=== PATIENT | male | born 1950 | race Caucasian/White ===

== ENCOUNTER 2022-04-14 18:06 | Emergency (ER) | payer MEDICARE ==
[2022-04-14 18:40] LABS: #Basophils 0.1 thou/uL (0.0-0.2); #Eosinphils 0.2 thou/uL (0.0-0.7); #Lymphocytes 1.3 thou/uL (1.20-3.40); #Monocytes 0.8 thou/uL (0.11-0.59); #Neutrophils 4.8 thou/uL (1.40-6.50); %Eosinophils 2.4 % (0.0-10.0); %Lymphocytes 18.7 % (21.0-51.0); %Monocytes 10.7 % (0.0-10.0); %Neutrophils 67.2 % (42.0-75.0); Hemoglobin 14.7 g/dL (14.0-18.0); Mean Corpuscular Hemoglobin 34.5 pg (27.0-31.0); Mean Platelet Volume 7.7 fL (7.4-10.4); Platelet Count 285 thou/uL (130-400); RBC Distribution Width 12.3 % (11.5-14.5); Red Blood Cell (RBC) Count 4.26 mill/uL (4.70-6.10); White Blood Cell (WBC) Count 7.1 thou/uL (4.8-10.8)
[2022-04-14 19:02] LABS: ALT (SGPT) 32 U/L (8-55); AST (SGOT) 32 U/L (5-34); Albumin 4.6 g/dL (3.4-4.8); Alkaline Phosphatase 68 U/L (40-110); Anion Gap 15 mmol/L (10-20); BUN (Urea Nitrogen) 17 mg/dL (8.4-25.7); Calc. Creatinine Clearance 0 mL/min (70-130); Carbon Dioxide 24 mmol/L (23-31); Chloride 102 mmol/L (98-107); Estimated GFR 76; Globulin 3.6 g/dL (2.4-3.5); Glucose 111 mg/dL (80-115); Potassium 4.1 mmol/L (3.5-5.1); Protein, Total 8.2 g/dL (5.8-8.1); Sodium 137 mmol/L (136-145)
[2022-04-14 19:04] LABS: MDiff Complete? YES; Macrocytosis SLIGHT = 6-15 cells (100X) (0-5/hpf); Platelet Morphology Comment Appears Adequate
== END 2022-04-14 20:10 | disposition home or self-care (01) ==
LOC: ERS 18:06
DX: R00.2 Palpitations (principal); E78.5 Hyperlipidemia, unspecified; I10 Essential (primary) hypertension; Z79.899 Other long term (current) drug therapy
CPT/HCPCS: 36415; 71046; 80053; 84484; 85025; 93005

== ENCOUNTER 2024-04-19 09:49 | Outpatient (CLI) | payer MEDICARE | END 2024-04-19 09:50 | disposition home or self-care (01) | LOC: BICULT 09:49 → ULT 09:50 | PROVIDERS: ATTEND Internal Medicine | DX: N28.1 Cyst of kidney, acquired (principal); K76.0 Fatty (change of) liver, not elsewhere classified | CPT/HCPCS: 76700 ==

== ENCOUNTER 2025-05-31 10:40 | Outpatient (CLI) | payer MEDICARE ==
[2025-05-31 11:53] LABS: #Basophils 0.03 10x3/uL (0.0-0.2); #Eosinophils 0.23 10x3/uL (0.0-0.7); #Monocytes 0.76 10x3/uL (0.11-0.59); #Neutrophils 3.89 10x3/uL (1.40-6.50); %Basophils 0.5 % (0.0-1.0); %Eosinophils 3.8 % (0.0-10.0); %Lymphocytes 17.7 % (21.0-51.0); %Monocytes 12.7 % (0.0-10.0); %Neutrophils 65.1 % (42.0-75.0); Hematocrit 41.8 % (42.0-52.0); Hemoglobin 13.9 g/dL (14.0-18.0); Mean Corpuscular Hemoglobin 33.5 pg (27.0-31.0); Mean Corpuscular Volume 100.7 fL (78.0-98.0); Platelet Count 312 10x3/uL (130-400); Red Blood Cell (RBC) Count 4.15 mill/uL (4.70-6.10); White Blood Cell (WBC) Count 5.98 10x3/uL (4.8-10.8)
== END 2025-05-31 10:41 | disposition home or self-care (01) ==
LOC: LABBT 10:40
PROVIDERS: ATTEND Orthopaedic Surgery Hand Surgery
DX: Z01.818 Encounter for other preprocedural examination (principal); S62.627A Displaced fracture of middle phalanx of left little finger, initial encounter for closed fracture
CPT/HCPCS: 85025; 93005; 93010

== ENCOUNTER 2025-06-04 09:19 | Day surgery (SDC) | payer MEDICARE ==
[2025-05-31 11:02] VITALS: BMI 27.1
[2025-06-04] MEDS ORDERED: Acetaminophen 500 MG TAB ONE (09:46)
[2025-06-04] MEDS ORDERED: Lidocaine 1% PF 5 ML VIAL ONE (10:17)
[2025-06-04] MEDS ORDERED: Ondansetron PF 4 MG/2 ML Vial ONE (10:17)
[2025-06-04] MEDS ORDERED: Bacitracin 1 PK ONE (10:49)
[2025-06-04] MEDS ORDERED: CEFAZOLIN 2 GM VIAL ONE (10:51)
[2025-06-04] MEDS ORDERED: PHENYLEPHRINE-NS 100 MCG/ML 10 ML SYRINGE ONE (11:53)
[2025-06-04] MEDS ORDERED: PROPOFOL 200 MG/20 ML VIAL ONE (11:53)
[2025-06-04] MEDS ORDERED: Ketorolac Tromethamine 30 MG (1 mL) VIAL ONE (14:02)
== END 2025-06-04 15:40 | disposition home or self-care (01) ==
LOC: SDC 09:19
PROVIDERS: ATTEND Orthopaedic Surgery Hand Surgery
PROC: 0PSV04Z Reposition Left Finger Phalanx with Internal Fixation Device, Open Approach (ICD-10-PCS; principal; 2025-06-04)
DX: S62.627B Displaced fracture of middle phalanx of left little finger, initial encounter for open fracture (principal); E78.5 Hyperlipidemia, unspecified; I10 Essential (primary) hypertension; K76.0 Fatty (change of) liver, not elsewhere classified; F41.9 Anxiety disorder, unspecified; W01.0XXA Fall on same level from slipping, tripping and stumbling without subsequent striking against object, initial encounter; Y93.89 Activity, other specified; Z79.82 Long term (current) use of aspirin; Z79.899 Other long term (current) drug therapy
CPT/HCPCS: 26746; 73140; J0665; J1100; J1885; J2405; J3010; A6223; C1713; C1894; J2704